=== PATIENT | female | born 2000 | race Caucasian/White ===

== ENCOUNTER 2022-09-24 09:39 | Emergency (ER) | payer BC ==
[~2022-09-24] VITALS: Ht 175.3 cm; Wt 56.2 kg
--- NOTE | 2022-09-24 10:00 | NUR ---
C/O MIGRAINE X 5 DAYS, VOMITTED THIS MORNING.
[2022-09-24] MEDS ORDERED: KETOROLAC TROMETHAMINE INJ 30 MG/ML VIAL IV ONE (10:30)
[2022-09-24] MEDS ORDERED: DEXAMETHASONE SOD PHOSPHATE 10 MG/ML VIAL IV ONE (10:30)
[2022-09-24] MEDS ORDERED: ONDANSETRON HCL/PF 4 MG/2 ML VIAL IVP ONE (10:30)
[2022-09-24] MEDS ORDERED: IV NS 0.9% 500 ML BAG IV ONE (10:30)
--- NOTE | 2022-09-24 10:30 | NUR ---
ESTABLISHED IV LINE 22 G LEFT HAND . INFUSING WELL .
[2022-09-24] MEDS ORDERED: DEXAMETHASONE SOD PHOSPHATE 10 MG/ML VIAL ONE (10:34)
[2022-09-24] MEDS ORDERED: KETOROLAC TROMETHAMINE INJ 30 MG/ML VIAL ONE (10:34)
[2022-09-24] MEDS ORDERED: ONDANSETRON HCL/PF 4 MG/2 ML VIAL ONE (10:34)
[2022-09-24] MEDS ORDERED: ONDA4TAB5 PO (11:27)
--- NOTE | 2022-09-24 11:36 | NUR ---
Patient discharged to home in stable condition. Written and verbal after care instructions given. Patient verbalizes understanding of instruction.IV removed. Catheter intact and site benign. Pressure and 4x4 applied to site. No bleeding noted.
[2022-09-24 11:48] VITALS: BP 121/78
== END 2022-09-24 11:49 | disposition home or self-care (01) ==
LOC: ER 09:39
DX: R51.9 Headache, unspecified (principal); K50.90 Crohn's disease, unspecified, without complications; Z79.899 Other long term (current) drug therapy; Z88.1 Allergy status to other antibiotic agents
CPT/HCPCS: 99284; 96374; 96375; J1100; J1885; J2405; J7030